=== PATIENT | female | born 1935 | race Caucasian/White ===

== ENCOUNTER 2019-03-09 10:45 | Emergency (ER) | payer MEDICARE, OTHER ==
[~2019-03-09] VITALS: Ht 157.5 cm; Wt 47.2 kg
--- NOTE | 2019-03-09 11:30 | NUR ---
PT REC'D TO EF C/CO FLL THIS MORNING ABRASIONS TO RT SIDE OF FACE AND SWOLLEN LEFT WRIST ICE APPLIED TO SITE. LEFT KNEE ABRASION SITE CLEANED WITH NS TOLERATED WELL VSS FAMILY AT BEDSIDE
[2019-03-09] MEDS ORDERED: HYDROCODONE/APAP 5/325MG 1 EACH TABLET ONE (12:27)
[2019-03-09] MEDS ORDERED: HYDROCODONE/APAP 5/325MG 1 EACH TABLET PO ONE (12:30)
[2019-03-09] MEDS ORDERED: BACITRACIN ZINC OINT PACKET 1 EA PACKET TP ONE (12:30)
--- NOTE | 2019-03-09 12:31 | NUR ---
NRCO GIVEN FOR PAIN
--- NOTE | 2019-03-09 13:49 | NUR ---
PT VOIDED ON BEDPAN SENT TO CT
[2019-03-09] MEDS ORDERED: MORPHINE SULFATE INJ 2 MG/ML DISP.SYRIN IM ONE (14:30)
[2019-03-09] MEDS ORDERED: ONDANSETRON 4 MG TAB.RAPDIS PO ONE (14:30)
[2019-03-09] MEDS ORDERED: LIDOCAINE 1% INJ 50 ML MDV IJ ONE ×2 (14:30→14:33)
[2019-03-09] MEDS ORDERED: ONDANSETRON HCL/PF 4 MG/2 ML VIAL ONE (14:33)
[2019-03-09] MEDS ORDERED: MORPHINE SULFATE INJ 4 MG/ML DISP.SYRIN ONE (14:34)
[2019-03-09] MEDS ORDERED: ONDANSETRON 4 MG TAB.RAPDIS ONE (14:35)
--- NOTE | 2019-03-09 15:24 | NUR ---
PT TOLERATED SOFT SLINT LEFT ARMA SLING GIVEN PT OK STBLE FOR D/CPatient discharged to home in stable condition. Written and verbal after care instructions given. Patient verbalizes understanding of instruction.
[2019-03-09 15:46] VITALS: BP 154/76
== END 2019-03-09 15:51 | disposition home or self-care (01) ==
LOC: ER 10:48
DX: S52.592A Other fractures of lower end of left radius, initial encounter for closed fracture (principal); S80.01XA Contusion of right knee, initial encounter; S00.81XA Abrasion of other part of head, initial encounter; R51 Headache; W01.0XXA Fall on same level from slipping, tripping and stumbling without subsequent striking against object, initial encounter; Y93.89 Activity, other specified; Y92.89 Other specified places as the place of occurrence of the external cause; Y99.8 Other external cause status
CPT/HCPCS: 25605; 70450; 73090; 73110; 96372; 99284; A6403; J2270; J3490; Q0162; J2405

== ENCOUNTER 2019-07-10 10:51 | Emergency (ER) | payer MEDICARE, OTHER ==
[~2019-07-10] VITALS: Ht 152.4 cm; Wt 68.0 kg
[2019-07-10] MEDS ORDERED: TDAP [DIPH/PERTUSSIS/TET] 0.5 ML VIAL IM ONE ×2 (11:00→11:04)
[2019-07-10] MEDS ORDERED: LIDOCAINE 1% INJ 50 ML MDV IJ ONE ×2 (11:00→11:03)
[2019-07-10] MEDS ORDERED: ACETAMINOPHEN ES 500 MG TABLET PO ONE (11:00)
[2019-07-10] MEDS ORDERED: ACETAMINOPHEN ES 500 MG TABLET ONE (11:04)
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
--- NOTE | 2019-07-10 11:30 | NUR ---
wheeled patient for CT scan
[2019-07-10 14:28] VITALS: BP 145/81
--- NOTE | 2019-07-10 14:29 | NUR ---
Patient discharged to home in stable condition. Written and verbal after care instructions given. Patient verbalizes understanding of instruction.
[2019-07-10] MEDS ORDERED: BACITRACIN ZINC OINT PACKET 1 EA PACKET TP ONE (14:30)
== END 2019-07-10 14:29 | disposition home or self-care (01) ==
LOC: ER 10:53
DX: S01.511A Laceration without foreign body of lip, initial encounter (principal); R51 Headache; W01.198A Fall on same level from slipping, tripping and stumbling with subsequent striking against other object, initial encounter; Y93.89 Activity, other specified; Y92.89 Other specified places as the place of occurrence of the external cause; Y99.8 Other external cause status
CPT/HCPCS: 12011; 70450; 70486; 72125; 90471; 90715; 99284; J3490

== ENCOUNTER 2019-07-15 10:10 | Emergency (ER) | payer MEDICARE, OTHER ==
[~2019-07-15] VITALS: Ht 152.4 cm; Wt 68.0 kg
[2019-07-15 10:16] VITALS: BP 135/81
== END 2019-07-15 10:50 | disposition home or self-care (01) ==
LOC: ER 10:15
DX: S01.511D Laceration without foreign body of lip, subsequent encounter (principal); X58.XXXD Exposure to other specified factors, subsequent encounter
CPT/HCPCS: 99281; A6403

== ENCOUNTER 2021-09-06 16:29 | Emergency (ER) | payer MEDICARE ==
[~2021-09-06] VITALS: Ht 157.5 cm; Wt 47.2 kg
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
--- NOTE | 2021-09-06 18:13 | NUR ---
ORAL TEMP 98.1, C/O PAIN ON LEFT UPPER SIDE OF RIBS AND LEFT FOREHEAD AREA. REPOSITIONED, MADE MORE COMFORTABLE NO SOB, NO LABORED BREATHING, ABLE TO FOLLOW SIMPLE COMMANDS
--- NOTE | 2021-09-06 19:28 | NUR ---
PT TAKEN TO CT VIA JODIE
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
--- NOTE | 2021-09-06 20:41 | NUR ---
Patient discharged to home in stable condition. Written and verbal after care instructions given. Patient verbalizes understanding of instruction. PT ambulatory with a steady gait
[2021-09-06 20:42] VITALS: BP 121/87
== END 2021-09-06 20:44 | disposition home or self-care (01) ==
LOC: ER 16:45
DX: S00.83XA Contusion of other part of head, initial encounter (principal); S20.212A Contusion of left front wall of thorax, initial encounter; M54.2 Cervicalgia; W01.0XXA Fall on same level from slipping, tripping and stumbling without subsequent striking against object, initial encounter; Y93.89 Activity, other specified; Y92.89 Other specified places as the place of occurrence of the external cause; Y99.8 Other external cause status
CPT/HCPCS: 70450-TC; 71100-TC; 71250-TC; 72125-TC

== ENCOUNTER 2021-12-30 11:07 | Emergency (ER) | payer MEDICARE ==
[~2021-12-30] VITALS: Ht 157.5 cm; Wt 45.4 kg
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
[2021-12-30] MEDS ORDERED: ACETAMINOPHEN ES 500 MG TABLET ONE (11:45)
[2021-12-30] MEDS ORDERED: ACETAMINOPHEN ES 500 MG TABLET PO ONE (12:00)
--- NOTE | 2021-12-30 12:00 | NUR ---
TO CT SCAN OF HEAD
--- NOTE | 2021-12-30 12:25 | NUR ---
CLEAN WOUND BY ED TACH
--- NOTE | 2021-12-30 12:46 | NUR ---
D/CINSTRACTION GIVEN TO PT FULLY AND VERBLIZED UNDERSTOOD D/C HOME WITH FALLOW UP CARE WALKIN WITH STADY GAITE
[2021-12-30 13:07] VITALS: BP 136/82
== END 2021-12-30 13:12 | disposition home or self-care (01) ==
LOC: ER 11:12
DX: S00.03XA Contusion of scalp, initial encounter (principal); S40.212A Abrasion of left shoulder, initial encounter; S80.212A Abrasion, left knee, initial encounter; S80.211A Abrasion, right knee, initial encounter; Z60.2 Problems related to living alone; W01.0XXA Fall on same level from slipping, tripping and stumbling without subsequent striking against object, initial encounter; Y93.89 Activity, other specified; Y92.89 Other specified places as the place of occurrence of the external cause; Y99.8 Other external cause status
CPT/HCPCS: 70450-TC; 73030-TC; 73564-TC